=== PATIENT | male | born 1950 | race Caucasian/White ===

== ENCOUNTER 2017-12-25 03:46 | Observation (INO) | payer MEDICARE, OTHER ==
--- NOTE | 2017-12-25 04:01 | ED Physician Documentation ---
General Adult - HISTORIAN Historian: patient - HPI Stated Complaint: sob, rapid heart Chief Complaint: General Adult Onset: hours Timing: still present Severity: moderate Further Comments: yes (Pt is a 67 yo male with sob, feeling of a rapid heart rate, and some chest heaviness. Pt has hx COPD, and used his inhaler, which helped a bit. Pt notes that he has recently been having sob with exertion at ordinary chores and has had to stop and sit and rest after a few minutes exertion. Pt describes chest heaviness, an odd feeling in his chest. No n/v, no diaphoresis. Pt has had palpatations also. Pt is visiting from [place].) - ROS CONST: weakness EYES/ENT: none CVS/RESP: chest pain, shortness of breath GI/: none MS/SKIN/LYMPH: none - PAST HX Past History: COPD, hypertension, other (HLD) Allergies/Adverse Reactions: Allergies Allergy/AdvReac Type Severity Reaction Status Date / Time No Known Allergies Allergy Verified 12/25/17 04:40 Home Medications: Ambulatory Orders Medication Instructions Recorded Amlodipine Besylate/Benazepril 1 tab PO D 12/25/17 [Lotrel 10-40 mg Capsule] Aspirin EC [Ecotrin] 81 mg PO D 12/25/17 Atorvastatin Calcium [Lipitor] 20 mg PO D 12/25/17 Fluticasone/Vilanterol [Breo 1 tab PO D 12/25/17 Ellipta 100-25 Mcg INH] Ipratropium/Albuterol Sulfate 1 inh INH PRN PRN 12/25/17 [Combivent Respimat] Umeclidinium [place] [Incruse 62.5 mg PO D 12/25/17 Ellipta] - SOCIAL HX Smoking History: quit greater than 1 year - FAMILY HX Family History: No - REVIEWED ASSESSMENTS Nursing Assessment Reviewed: Yes Vitals Reviewed: Yes Progress - Progress Progress: CXR: No acute pulmonary disease. Hyperinflation of the lungs. ASA 325 mg po Nitro 0.4 mg SL improved with Nitro and NC O2 admit to ER doctor, r/o IN - EKG/XRAY/CT EKG: NSR (HR=84; 1st degree AV block; 1 mm depression V3,4,5; PVC's.) Comments: time: 03:51 - Additional EKG/XRAY/Consults EKG #2: NSR (HR=72; 1st degree AV block; possible lateral ischemia.) Comments: time: 04:47 General Adult Physical Exam - PHYSICAL EXAM GENERAL APPEARANCE: mild distress EENT: pharynx normal NECK: normal inspection, supple RESPIRATORY: no resp distress, chest non-tender, breath sounds normal CVS: reg rate & rhythm, heart sounds normal, equal pulses ABDOMEN: soft, no organomegaly, normal bowel sounds BACK: normal inspection, no CVA tenderness SKIN: warm/dry, normal color EXTREMITIES: non-tender, normal range of motion, no evidence of injury NEURO: oriented X3, motor nml, sensation nml Discharge Clincal Impression: chest pain; possible lateral ischemia Condition: Stable Disposition: 09 ADMITTED INPATIENT Decision to Admit: [id number] Decision Time: 06:15
[2017-12-25] MEDS ORDERED: ASPIRIN 81 MG CHEW TAB ONE (04:02)
[2017-12-25] MEDS ORDERED: ASPIRIN 81 MG CHEW TAB PO ONE (04:07)
[2017-12-25] MEDS ORDERED: NITROGLYCERIN 0.4 MG TAB.SUBL SL ONE (04:11)
--- NOTE | 2017-12-25 04:36 | Diagnostic Imaging Report ---
NINA HOROWITZ [facility] [id number] [facility] [address] [place] [phone] Report Submission Date: Dec 25, 2017 4:32:22 AM CDT Patient Study Name: RABIA MORENO Date: Dec 25, 2017 4:06:36 AM CDT Modality Type: DX Gender: M Description: CHEST : 48 Institution: [facility] Physician: NINA HOROWITZ Ap portable upright radiographs of the chest Clinical history: Palpitations short of breath Technique: anterior /posterior portable upright Findings: The lung acuna are hyperinflated. The heart and mediastinal structures are normal. The bony thorax is unremarkable. No pneumothorax or pleural effusion is seen. Impression: No acute pulmonary disease Hyperinflation of the lungs Electronically signed on Dec 25, 2017 4:32:22 AM CDT by: William DAMON
[2017-12-25 04:48] LABS: eGFR (Non-African) > 60
[2017-12-25 05:41] LABS: BASO % 0.8 % (0.0-1.5); EOS % 3.2 % (0.0-6.8); LYMPH ABS # 2.61 thou/uL (0.60-4.00); MCH. 31.7 pg (28.0-34.0); MCV 90.8 fL (80.0-100.0); MONOCYTE % 6.3 % (0.0-11.0); MONOCYTE ABS # 0.49 thou/uL (0.00-0.90); PLATELET COUNT 233 thou/uL (130-400)
[2017-12-25] MEDS ORDERED: IPRATROPIUM/ALBUTEROL SULFATE 3 ML AMPUL.NEB NEB PRN (06:31)
[2017-12-25 06:41] LABS: APPEARANCE,URINE NOT DOCUMENTED (CLEAR); COLOR,URINE NOT DOCUMENTED (YELLOW); OCCULT BLOOD,URINE TRACE (NEGATIVE); UROBILINOGEN URINE 0.2 Eu (0.2-1.0)
[2017-12-25] MEDS ORDERED: BENAZEPRIL HCL 10 MG TABLET PO SCH (07:00)
[2017-12-25] MEDS ORDERED: amLODIPine BESYLATE 5 MG TABLET ONE (08:32)
[2017-12-25] MEDS ORDERED: ASPIRIN EC 81 MG TABLET.DR ONE (08:33)
[2017-12-25] MEDS ORDERED: FLUTICASONE PROPIONATE 110 MCG IH SCH (09:00)
[2017-12-25] MEDS ORDERED: ASPIRIN EC 81 MG TABLET.DR PO SCH (09:00)
[2017-12-25] MEDS ORDERED: amLODIPine BESYLATE 5 MG TABLET PO SCH (09:00)
[2017-12-25] MEDS ORDERED: ATORVASTATIN CALCIUM 80 MG TABLET PO SCH (09:00)
--- NOTE | 2017-12-25 09:53 | Inpatient Progress Note ---
Subjective - Required Recertification Statement I anticipate X number of days because-include discharge plan: 1 - Review of Systems Subjective: Patient states that he is doing well at this time. Voices no complaints. No chest pain or pressure. No skip beats noted. Cardiovascular: Denies: Chest Pain, Palpitations, Light Headedness Objective - Exam Vitals and I&O: Vital Signs Temp 97.7 F 12/25/17 07:07 Pulse 86 12/25/17 07:50 Resp 16 12/25/17 07:30 BP 128/78 12/25/17 07:30 Pulse Ox 95 12/25/17 07:30 Intake & Output 12/24/17 12/24/17 12/25/17 11:59 23:59 11:59 Intake Total 240 Balance 240 Weight 92.986 kg Intake: Oral 240 General: Alert, Oriented to Person, Oriented to Place, Oriented to Time, Cooperative, Other Neck: Supple Lungs: Clear to auscultation, Normal air movement, Speaks full Sentences. No: Wheezes, Rales, Rhonchi Cardiovascular: Regular rate, Normal S1, Normal S2 Abdomen: Normal bowel sounds, Soft Extremities: No clubbing, No cyanosis Skin: Normal, [place], Warm, Dry Psych/Mental Status: Mental status NL - Results Results: Laboratory Results WBC Comment 7.78 thou/uL (4.00-12.00) 12/25/17 04:21 RBC 5.21 mil/uL (3.80-5.80) 12/25/17 04:21 Hemoglobin (Send Out) 16.5 g/dL (12.0-18.0) 12/25/17 04:21 Hct (Send Out) 47.3 % (37.0-53.0) 12/25/17 04:21 MCV (Send Out) 90.8 fL (80.0-100.0) 12/25/17 04:21 MCH 31.7 pg (28.0-34.0) 12/25/17 04:21 MCHC (Send Out) 34.9 g/dL (30.0-36.0) 12/25/17 04:21 RDW Coeff of Evelio 13.4 % (11.3-14.7) 12/25/17 04:21 Plt Count 233 thou/uL (130-400) 12/25/17 04:21 Absolute Lymphs (auto) 2.61 thou/uL (0.60-4.00) 12/25/17 04:21 Absolute Monos (auto) 0.49 thou/uL (0.00-0.90) 12/25/17 04:21 Absolute Basos (auto) 0.06 thou/uL (0.00-0.50) 12/25/17 04:21 Neutrophils % 56.3 % (39.0-79.0) 12/25/17 04:21 Absolute Neutrophils 4.38 thou/uL (1.50-7.70) 12/25/17 04:21 Lymphocytes 33.5 % (16.0-50.0) 12/25/17 04:21 Monocytes 6.3 % (0.0-11.0) 12/25/17 04:21 Absolute Eosinophils 0.25 thou/uL (0.00-0.60) 12/25/17 04:21 Basophilia % 0.8 % (0.0-1.5) 12/25/17 04:21 Eosinophil Count 3.2 % (0.0-6.8) 12/25/17 04:21 D-Dimer 244 ng/mL (6.0-682) 12/25/17 04:21 Sodium 135 mmol/L (136-145) L 12/25/17 04:21 Potassium 3.3 mmol/L (3.5-5.1) L 12/25/17 04:21 Chloride 108 mmol/L (98-107) H 12/25/17 04:21 Carbon Dioxide 30 mmol/L (22-30) 12/25/17 04:21 BUN 19 mg/dL (9-20) 12/25/17 04:21 Creatinine 0.90 mg/dL (0.66-1.25) 12/25/17 04:21 Est GFR ( Amer) > 60 (60-) 12/25/17 04:21 Est GFR (Non-Af Amer) > 60 (60-) 12/25/17 04:21 Glucose 103 mg/dL (74-106) 12/25/17 04:21 Calcium 9.2 mg/dL (8.4-10.2) 12/25/17 04:21 Total Bilirubin 0.5 mg/dL (0.2-1.3) 12/25/17 04:21 AST 19 U/L (15-46) 12/25/17 04:21 ALT 36 U/L (13-69) 12/25/17 04:21 Alkaline Phosphatase 113 U/L (38-126) 12/25/17 04:21 Creatine Kinase 114 U/L (55-170) 12/25/17 04:21 CK-MB (CK-2) 2.5 ng/mL (0.0-5.6) 12/25/17 04:21 Troponin I < 0.03 ng/mL (0.03-0.06) L 12/25/17 04:21 NT-Pro-B Natriuret Pep 37.7 pg/mL (15.0-125.0) 12/25/17 04:21 Total Protein 7.5 g/dL (6.3-8.2) 12/25/17 04:21 Albumin 4.0 g/dL (3.5-5.0) 12/25/17 04:21 Urine Color Not documented (YELLOW) 12/25/17 04:45 Urine Appearance Not documented (CLEAR) 12/25/17 04:45 Urine pH 6.0 (5.0 - 8.0) 12/25/17 04:45 Ur Specific [place] 1.010 (1.010-1.030) 12/25/17 04:45 Urine Protein Negative mg/dL (NEGATIVE) 12/25/17 04:45 Urine Ketones Negative mg/dL (NEGATIVE) 12/25/17 04:45 Urine Occult Blood Trace (NEGATIVE) 12/25/17 04:45 Urine Nitrite Negative (NEGATIVE) 12/25/17 04:45 Urine Bilirubin Negative (NEGATIVE) 12/25/17 04:45 Urine Urobilinogen 0.2 Eu (0.2-1.0) 12/25/17 04:45 Ur Leukocyte Esterase Negative (NEGATIVE) 12/25/17 04:45 Urine Glucose Negative mg/dL (NEGATIVE) 12/25/17 04:45 Assessment/Plan - Assessment/Plan (1) Chest discomfort Status: Acute Current Visit: Yes Assessment: stable, will continue with cardiac work-up.
[2017-12-25 13:41] VITALS: BMI 26.2
[2017-12-25 14:22] VITALS: BP 121/61
--- NOTE | 2017-12-25 15:28 | Discharge Summary ---
Discharge Summary - Discharge Sumary History of Present Illness: Patient is a 67-year-old white male who is had some problems with some cardiac irregularities. Patient states when he has these he will developed some chest discomfort. Usually this will go away within minutes. Does not seem to be any precipitating factor that he is aware. On the evening of admission patient developed some cardiac arrhythmias which he felt was PVCs. However they did not go away like they normally did and patient subsequently came to the ED for evaluation. And ED patient had some slight ST segment depression in a lateral lead. Patient cardiac enzymes were negative. Due to his history and the slight irregularity in his EKG patient was admitted to real possible myocardial infarction. Patient states he did have a cardiac stress test done approximately 2 1/2 years ago which was normal. Condition at Discharge: Stable Home Medications: Ambulatory Orders Medication Instructions Recorded Amlodipine Besylate/Benazepril 1 tab PO D 12/25/17 [Lotrel 10-40 mg Capsule] Aspirin EC [Ecotrin] 81 mg PO D 12/25/17 Atorvastatin Calcium [Lipitor] 20 mg PO D 12/25/17 Fluticasone/Vilanterol [Breo 1 tab PO D 12/25/17 Ellipta 100-25 Mcg INH] Ipratropium/Albuterol Sulfate 1 inh INH PRN PRN 12/25/17 [Combivent Respimat] Nitroglycerin [Nitrostat] 0.3 mg SL Q5 #25 tab.subl 12/25/17 Umeclidinium [place] [Incruse 62.5 mg PO D 12/25/17 Ellipta] Consultations this Visit: None Procedures this Visit: None Allergies/Adverse Reactions: Allergies Allergy/AdvReac Type Severity Reaction Status Date / Time No Known Allergies Allergy Verified 12/25/17 04:40 Patient Problems: Current Active Problems Problem Status Onset COPD (chronic obstructive pulmonary disease) Acute Chest discomfort Acute Discharge Summary: Patient did have an occasional PVC but otherwise his cardiac rhythm was a normal sinus rhythm for the borderline first-degree AV block. Serial cardiac enzymes were normal and EKGs were done and remained stable with slight ST seg depression in the lateral lead. Patient did not have any further chest discomfort. Patient was wanted to go back to [place] to see his manager poker for follow-up. Patient was subsequently discharged in stable condition. COPD remained stable. - Final Diagnosis (1) Chest discomfort Problems: stable to improved (2) COPD (chronic obstructive pulmonary disease) Problems: stable
== END 2017-12-25 17:05 | disposition home or self-care (01) ==
LOC: ED 03:46 → SOUTH 07:02
PROVIDERS: ADMIT Family Medicine; ATTEND Family Medicine
DX: R07.9 Chest pain, unspecified (principal); J44.9 Chronic obstructive pulmonary disease, unspecified; I10 Essential (primary) hypertension; E78.5 Hyperlipidemia, unspecified
CPT/HCPCS: 71045; 80053; 81002; 82550; 82553; 83880; 84484; 85025; 85379; 93005; G0378; 94640; 99235; S1016